=== PATIENT | female | born 1965 | race Caucasian/White ===

== ENCOUNTER 2018-06-13 08:05 | Day surgery (SDC) | payer BC ==
[2018-06-07 15:09] VITALS: BMI 25.8
[2018-06-13] MEDS ORDERED: BACITRACIN 15 GM TUBE TOPICAL OINTMENT ONE (10:45)
[2018-06-13] MEDS ORDERED: LIDOCAINE 1%/EPI 1:100000 (20 ML MULTI DOSE VIAL) ONE (10:45)
[2018-06-13] MEDS ORDERED: PROPOFOL 20 ML ONE (11:06)
[2018-06-13] MEDS ORDERED: SUCCINYLCHOLINE CHLORIDE 200 MG/10 ML VIAL ONE (11:06)
[2018-06-13] MEDS ORDERED: MIDAZOLAM HCL 2 MG/2 ML SINGLE DOSE VIAL ONE (11:07)
[2018-06-13] MEDS ORDERED: SODIUM CHLORIDE 0.9% P/F 10 ML VIAL IJ ONE (11:08)
[2018-06-13] MEDS ORDERED: LIDOCAINE HCL 1%, 10 MG/ML (20ML VIAL) ONE (11:08)
[2018-06-13] MEDS ORDERED: ceFAZolin SODIUM 1 GM VIAL ONE (11:26)
[2018-06-13] MEDS ORDERED: DEXAMETHASONE SOD PHOSPHATE 4 MG/1 ML VIAL ONE (11:26)
[2018-06-13] MEDS ORDERED: ONDANSETRON 4 MG/2 ML VIAL ONE (11:26)
[2018-06-13] MEDS ORDERED: LIDOCAINE HCL 1%, 10 MG/ML (50 mL VIAL) IJ ONE (11:50)
--- NOTE | 2018-06-13 13:02 | SURG ---
Surgery Professor Of Family Medicine Note Professor Of Family Medicine: Keila Joya PA-C Date of Service: 06/13/18 Diagnosis: asymmetry of the breast Procedure: Left breast reconstruction with Tissue rearrangement, scar revision and subcutaneous tissue from lateral breast. I was present for the entirety of the operative procedure. For further detail, please refer to operative report. Visit type - Case Type Case Type: Scheduled - Emergency Emergency Visit: No - New patient This patient is new to me today: Yes Date on this admission: 06/13/18
--- NOTE | 2018-06-13 13:02 | OP ---
Operative Note - Note: Operative Date: 06/13/18 Pre-Operative Diagnosis: breast asymmetry Operation: Left breast reconstruction with Tissue rearrangement, scar revision and subcutaneous tissue from lateral breast. Post-Operative Diagnosis: Same as Pre-op Surgeon: Syed Phillips Underground Distribution Engineer: Keila Joya Anesthesiologist/MAIL EXAMINER: Татьяна Guerin Anesthesia: General Estimated Blood Loss (mls): 30 Fluid Volume Replaced (mls): 850 Operative Report Dictated: Yes
[2018-06-13] MEDS ORDERED: ONDANSETRON 4 MG/2 ML VIAL IVPUSH PRN (14:08)
[2018-06-13] MEDS ORDERED: oxyCODONE HCL 5 MG TABLET PO PRN (14:08)
[2018-06-13] MEDS ORDERED: LACTATED RINGERS SOLUTION 1,000 ML IV SCH (14:15)
[2018-06-13 14:18] VITALS: TEMP 97.8
[2018-06-13 15:24] VITALS: BP 106/62; PULSE 74
--- NOTE | 2018-06-16 19:08 | OP ---
DATE OF OPERATION: 06/13/2018 SURGEON: Syed Phillips MD OFFICE PROFESSIONAL: Keila Joya PA-C PREOPERATIVE DIAGNOSES: 1. Bilateral acquired chest wall deformity, status post bilateral mastectomy. 2. Asymmetry of reconstructed chest wall with malposition and asymmetry. OPERATIVE PROCEDURE: Left breast reconstruction utilizing other technique. POSTOPERATIVE DIAGNOSES: 1. Bilateral acquired chest wall deformity, status post bilateral mastectomy. 2. Asymmetry of reconstructed chest wall with malposition and asymmetry. OPERATIVE INDICATION: The patient is a young woman who underwent mastectomy and now presents with a gross asymmetry of the chest wall requiring the reconstructive procedure with other technique with elevation of the mastectomy scar and reconstruction of the breast. The risks and benefits of surgical versus nonsurgical alternatives as well as material complications of the procedure were described to the patient on multiple occasions preoperatively as well as today in the holding area. DESCRIPTION OF PROCEDURE: The patient was taken to the operating room and after induction of general anesthesia in the supine position both arms were extended and padded. Venodyne boots were placed. The entire chest wall was prepped with ChloraPrep solution on both sides for symmetry and the patient was prepped and draped in the usual fashion for breast surgery. At this point, attention was turned to the left breast, which showed a significant deformity in the mid portion of the breast with descent of the lower pole of the breast and asymmetry of the reconstructed chest wall. At this point, after 1% local lidocaine anesthesia was infiltrated into the mastectomy scar in the mid portion of the breast, the tissues were elevated with dilute epinephrine solution over the entire lower pole of the breast and laterally and inferiorly on the chest wall for harvest of reconstructive tissue. At this point, the incision was made according to the preoperative pattern drawn around the mastectomy scar. The mastectomy scar was then excised in its mid portion and lateral portion of the breast to create a flap. Dissection was then carried out inferiorly on the breast using optical magnification of 2.5 power in the subcutaneous fashion. Dissection was carried down towards the inframammary fold from the midpoint of the breast, elevating a flap of tissue. At this point, reconstructive tissue was harvested from the lateral portion of the chest wall by making an incision down through the skin of the flap to the deep area over the lateral border of the chest wall, to serratus muscle, and inferiorly along the abdominal wall and lateral chest itself. Tissue was then harvested using the usual technique to process reconstructive material. This tissue was transferred to the back table, washed, cleansed, and prepared for insertion. The new flap was then elevated into its new anatomic position and tailored to contour the breast to correct indentation defect and asymmetry. Once this was elevated into its new position, it was tacked into position. The reconstructive harvested tissue was then transferred to the midportion of the breast superiorly and laterally in order to correct the deformity. Once this tissue was in place, the wounds were then advanced and closed upon themselves after trimming the lower portion of the breast and elevating the lower pole of the breast. Multiple layered sutures using 3-0 PDS suture on the deep tissue, 3-0 in the deep dermal fashion, and a 3-0 V-loc suture in a running subcuticular fashion along the skin. Support of the breast was carried out using Dermabond, Steri-Strips, and advancement closure. The breast was then placed into a compressive surgical bra with fluff dressing. She tolerated the procedure well. The donor site was also closed and compressed with dressing. She was awakened, extubated, and transferred to the recovery room in satisfactory condition. LISANDRO PHILLIPS M.D. JAMES/[id number]
--- NOTE | 2018-06-21 16:19 | PATH ---
Surgical Pathology Report Patient Name: MARIAMA HARDING [facility]. Rec. #: [id number] /Age/Gender: 1965 (Age: 53) / F Account: [id number] Location: [facility] AMBULATORY Taken: 06/13/2018 Received: 06/13/2018 Reported: 06/21/2018 Physicians: Syed Phillips Specimen(s) Received LEFT BREAST SCAR FROM MASTECTOMY Clinical History History of breast cancer Final Diagnosis SCAR, LEFT BREAST MASTECTOMY, EXCISION: SKIN WITH SCAR. Electronically Signed Keila Molina M.D. Gross Description Received in formalin labeled "left breast scar (mastectomy)," are 3 read, unoriented skin shaves ranging from 3.0 x 0.5 to 4.5 x 0.4 cm. No discrete epidermal lesions are identified grossly. Director Market Intelligence sections are submitted in one cassette. 06/17/2018
== END 2018-06-13 15:00 | disposition home or self-care (01) ==
LOC: FASU 08:05
PROVIDERS: ATTEND Plastic Surgery
PROC: 0HRU07Z Replacement of Left Breast with Autologous Tissue Substitute, Open Approach (ICD-10-PCS; principal; 2018-06-13 11:54)
DX: M95.4 Acquired deformity of chest and rib (principal); Z90.13 Acquired absence of bilateral breasts and nipples; N65.1 Disproportion of reconstructed breast; T85.42XA Displacement of breast prosthesis and implant, initial encounter; Y82.8 Other medical devices associated with adverse incidents; Y92.9 Unspecified place or not applicable; Y83.8 Other surgical procedures as the cause of abnormal reaction of the patient, or of later complication, without mention of misadventure at the time of the procedure
CPT/HCPCS: 88304-TC; 94760